=== PATIENT | female | born 1940 | race Hispanic/Latino ===

== ENCOUNTER 2017-09-14 16:33 | Inpatient (IN) | payer OTHER ==
[~2017-09-14] VITALS: Ht 165.1 cm; Wt 74.4 kg
--- NOTE | 2017-09-14 16:50 | ED GENERAL ADULT ---
See Addendum History of Present Illness General Chief Complaint: General Adult Stated Complaint: SHAKING,ARAYA,SHOULDER PAIN Source: patient Exam Limitations: no limitations Vital Signs & Intake/Output Vital Signs & Intake/Output Vital Signs Date Time Temp Pulse Resp B/P B/P Pulse O2 O2 Flow FiO2 Mean Ox Delivery Rate 09/14 1839 101.5 09/14 1800 101.5 103 18 126/61 97 Nasal 2.0L Cannula 09/14 1725 103.3 09/14 1649 103.3 122 24 144/68 85 Room Air Room Air Allergies Coded Allergies: NO KNOWN ALLERGIES (01/16/15) Triage Nurses Notes Reviewed? yes Onset: Abrupt Duration: hour(s): Timing: recent history HPI: 09/14/17 7 PM 77-year-old female presents to the emergency department for rigors, left chest wall pain, and back pain. She is status post upper and lower endoscopy today. She had esophageal stricture dilation. She seemed to be doing okay and went home and drank chicken noodle soup.. She developed rigors and severe chest and back pain. In the emergency department she was in severe distress. She was given IV fluids and IV Tylenol. Her symptoms dramatically improved. She actually requested that she be going home. CT scan showed no evidence of mediastinitis or esophageal perforation. Chest x-ray was negative. The CT of the chest did show groundglass appearance possibly indicative of aspiration pneumonia. The patient was signed out to Dr. Lewis at [address] Pantoja was informed and suggested esophagram be obtained. The radiologist is not available and so the decision must be made to obtain this first thing in the morning or to transfer the patient. The patient received IV Unasyn. Past History Travel History Traveled to [place] past 21 day No Medical History Any Pertinent Medical History? see below for history Cardiovascular: hypertension Gastrointestinal: GERD Psychiatric: anxiety, depression Endocrine: diabetes Surgical History Surgical History: lumpectomy Psychosocial History What is your primary language Guinean Family History Hx Contributory? No Review of Systems Review of Systems Constitutional: Reports: fever. EENTM: Denies: visual changes. Respiratory: Reports: see HPI. Cardiovascular: Reports: see HPI. GI: Reports: see HPI. Genitourinary: Reports: no symptoms. Musculoskeletal: Reports: no symptoms. Skin: Denies: rash. Neurological/Psychological: Reports: no symptoms. Hematologic/Endocrine: Reports: no symptoms. Physical Exam Physical Exam General Appearance: awake, anxious, severe distress Head: atraumatic, normal appearance Eyes: Bilateral: normal appearance, PERRL, EOMI. Ears, Nose, Throat: normal ENT inspection Neck: supple, full range of motion Respiratory: decreased breath sounds Cardiovascular: regular rate/rhythm Peripheral Pulses: 4+ radial (R), 4+ radial (L) Gastrointestinal: soft, non-tender Back: decreased range of motion Extremities: no edema Neurologic/Psych: no motor/sensory deficits, awake, alert, oriented x 3 Skin: intact, normal color, warm/dry Core Measures ACS in differential dx? No CVA/TIA Diagnosis: No Sepsis Present: No Sepsis Focused Exam Completed? No Progress Differential Diagnoses I considered the following diagnoses in my evaluation of the patient: [ Mediastinitis, esophageal perforation, intestinal perforation, free air, pneumothorax, aspiration pneumonia, urosepsis] Plan of Care: Orders Procedure Date/time Status LACTIC ACID 09/14 194 Active XRY-BARIUM SWALLOW/ESOPHAGRAM 09/14 184 Active EKG 09/14 165 Active BLOOD CULTURE 09/14 164 Active TROPONIN LEVEL 09/14 164 Complete LACTIC ACID 09/14 164 Complete COMPREHENSIVE METABOLIC PANEL 09/14 164 Complete CBC WITHOUT DIFFERENTIAL 09/14 164 Complete Laboratory Tests 09/14/17 1705: Anion Gap 14, Estimated GFR > 60, BUN/Creatinine Ratio 15.6, Glucose 96, Lactic Acid 2.4 H, Calcium 9.3, Total Bilirubin 0.9, AST 21, ALT 25, Alkaline Phosphatase 102, Troponin I < 0.01, Total Protein 7.3, Albumin 4.2, Globulin 3.1 , Albumin/Globulin Ratio 1.4, CBC w Diff NO MAN DIFF REQ, RBC 4.56, MCV 86.8, MCH 28.5, MCHC 32.8 L, RDW 16.4 H, MPV 7.1 L, Gran % 83.5 H, Lymphocytes % 13.7 L, Monocytes % 2.4, Eosinophils % 0.2, Basophils % 0.2, Absolute Granulocytes 8.4 H, Absolute Lymphocytes 1.4, Absolute Monocytes 0.2, Absolute Eosinophils 0, Absolute Basophils 0 Microbiology 09/14 1745 BLOOD: Blood Culture - RECD 09/15 1647 BLOOD: Blood Culture - ORD PATIENT: BJ CRUZ PRESENT AGE: 77 PATIENT ACCOUNT NO: [id number] : 42 LOCATION: [facility] ORDERING PHYSICIAN: Chucho Carnes MD SERVICE DATE: 09/14/17 EXAM TYPE: CAT - CT ABD & PELVIS W/O IV CONTRAS EXAMINATION: CT ABDOMEN AND PELVIS WITHOUT CONTRAST CLINICAL INFORMATION: Status post upper endoscopy. COMPARISON: CT of the abdomen and pelvis March 2010. TECHNIQUE: Multidetector volumetric imaging was performed from the superior aspect of the liver through the pubic symphysis. Sagittal and coronal reformatted images were obtained on the technologist's workstation. DLP: 593 mGy-cm FINDINGS: LUNG BASES: See chest report. PERITONEAL CAVITY: No free air or free fluid LIVER, GALLBLADDER, AND BILIARY TREE: The liver parenchyma is normal. There are calcified gallstones unchanged. There is no intrahepatic or extrahepatic biliary dilatation. PANCREAS: Unremarkable. SPLEEN: Unremarkable. ADRENAL GLANDS: Unremarkable. KIDNEYS AND URETERS: The kidneys are normal in size, shape, and attenuation. No hydronephrosis, hydroureter, or calculi seen. No perinephric stranding. BLADDER: Unremarkable. GASTROINTESTINAL TRACT: The small and large bowel are unremarkable. The appendix is unremarkable. The stomach is normal. ABDOMINAL WALL: The muscles are normal. There are subcutaneous partially calcified masses\E\foci in the subcutaneous soft tissues overlying the left gluteal region unchanged possibly reflecting injection granulomas or partially calcified old hematoma. LYMPH NODES: Normal. VASCULAR: There is moderate arterial calcification throughout. PELVIC VISCERA: There is a partially calcified fibroid unchanged possibly subserosal measuring 2 cm. OSSEOUS STRUCTURES: There is mild arthrosis in both hips. There is mild spondylosis of lumbosacral spine unchanged. IMPRESSION: No acute or definite significant abnormality in the abdomen and pelvis. Cholelithiasis unchanged. Moderate calcific atherosclerotic disease. Partially calcified fibroid unchanged. Mild arthrosis in both hips and spondylosis of the lumbosacral spine. Probable injection granulomas left gluteal region. DICTATED BY: Serg Benavidez MD DATE/TIME DICTATED:09/14/171748 [employer]IDGE [employer]ANE OPERATOR:RASHIDA DATE/TIME TRANSCRIBED:09/14/171748 CONFIDENTIAL, DO NOT COPY WITHOUT APPROPRIATE AUTHORIZATION. <Electronically signed in Other Vendor System> SIGNED BY: Serg Benavidez MD 09/14 Initial ED EKG: sinus tachycardia Departure Departure Disposition: STILL A PATIENT Condition: Stable Clinical Impression Primary Impression: Aspiration pneumonia Secondary Impressions: Chest wall pain, Rigors Referrals: Syeda Faith MD (PCP/Family) Departure Forms: Customer Survey General Discharge Information Comments The patient was signed out to Dr. Lewis at 7 PM. PATIENT: BJ CRUZ PRESENT AGE: 77 PATIENT ACCOUNT NO: [id number] : 42 LOCATION: ER ORDERING PHYSICIAN: Chicho Davila DO SERVICE DATE: 09/14/17 EXAM TYPE: CAT - CT CHEST WO IV CONTRAST EXAMINATION: CT CHEST WITHOUT CONTRAST CLINICAL INFORMATION: Chest pain and back pain status post upper endoscopy. COMPARISON: CT scan of the abdomen and pelvis March 2010. TECHNIQUE: Multidetector volumetric CT imaging of the chest was done. Axial MIP volume rendering provided. Sagittal and coronal reformatted images were obtained. DLP: 593 mGy-cm FINDINGS: Exam is slightly limited because of motion artifact from the patient's breathing throughout the exam. LUNGS: There are diffuse patchy airspace disease\E\ground-glass opacities throughout both lungs. There are no discrete nodules. There is no pneumothorax. MEDIASTINUM: No significant lymphadenopathy. Esophagus normal. No mediastinal air. CARDIOVASCULAR: There is moderate arterial calcification throughout. The heart size appears within normal limits. PLEURA: There is no pleural effusion. No pleural mass or thickening. AXILLA: No lymphadenopathy. OSSEOUS STRUCTURES: There is mild spondylosis throughout the dorsal spine. 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 IMPRESSION: Fairly diffuse bilateral patchy airspace disease\E\ground-glass opacities of uncertain etiology and significance. This most likely reflects mild edema. An inflammatory/infectious process is less likely. DICTATED BY: Serg Benavidez MD DATE/TIME DICTATED:09/14/171757 BRIDGE CRANE OPERATOR:RASHIDA DATE/TIME TRANSCRIBED:09/14/171757 CONFIDENTIAL, DO NOT COPY WITHOUT APPROPRIATE AUTHORIZATION. <Electronically signed in Other Vendor System> SIGNED BY: Serg Benaivdez MD 09/14 Critical Care Note Critical Care Note Critical Care Time: 30-74 min
[2017-09-14 17:13] LABS: ABSOLUTE BASOPHIL COUNT 0 /CUMM (0.0-0.2); ABSOLUTE EOSINOPHIL COUNT 0 /CUMM (0.0-0.7); ABSOLUTE GRANULOCYTE CT 8.4 /CUMM (1.4-6.5); ABSOLUTE LYMPH COUNT 1.4 /CUMM (1.2-3.4); ABSOLUTE MONOCYTE COUNT 0.2 /CUMM (0.10-0.60); BASOPHIL % 0.2 % (0.0-2.0); EOSINOPHIL % 0.2 % (0-5); GRANULOCYTE % 83.5 % (42.2-75.2); HEMATOCRIT 39.6 % (37-47); MEAN CORPUSCULAR HGB 28.5 PG (27.0-31.0); MEAN CORPUSCULAR HGB CONC 32.8 G/DL (33.0-37.0); MEAN CORPUSCULAR VOLUME 86.8 FL (81.0-99.0); MEAN PLATELET VOLUME 7.1 FL (7.4-10.4); PLATELET COUNT 330 /CUMM (130-400); RBC DISTRIBUTION WIDTH 16.4 % (11.5-14.5); RED BLOOD CELL CT 4.56 /CUMM (4.20-5.40)
--- NOTE | 2017-09-14 18:34 | CT SCAN REPORT ---
EXAMINATION: CT CHEST WITHOUT CONTRAST CLINICAL INFORMATION: Chest pain and back pain status post upper endoscopy. COMPARISON: CT scan of the abdomen and pelvis March 2010. TECHNIQUE: Multidetector volumetric CT imaging of the chest was done. Axial MIP volume rendering provided. Sagittal and coronal reformatted images were obtained. DLP: 593 mGy-cm FINDINGS: Exam is slightly limited because of motion artifact from the patient's breathing throughout the exam. LUNGS: There are diffuse patchy airspace disease\E\ground-glass opacities throughout both lungs. There are no discrete nodules. There is no pneumothorax. MEDIASTINUM: No significant lymphadenopathy. Esophagus normal. No mediastinal air. CARDIOVASCULAR: There is moderate arterial calcification throughout. The heart size appears within normal limits. PLEURA: There is no pleural effusion. No pleural mass or thickening. AXILLA: No lymphadenopathy. OSSEOUS STRUCTURES: There is mild spondylosis throughout the dorsal spine. 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 IMPRESSION: Fairly diffuse bilateral patchy airspace disease\E\ground-glass opacities of uncertain etiology and significance. This most likely reflects mild edema. An inflammatory/infectious process is less likely.
--- NOTE | 2017-09-14 18:35 | CT SCAN REPORT ---
EXAMINATION: CT ABDOMEN AND PELVIS WITHOUT CONTRAST CLINICAL INFORMATION: Status post upper endoscopy. COMPARISON: CT of the abdomen and pelvis March 2010. TECHNIQUE: Multidetector volumetric imaging was performed from the superior aspect of the liver through the pubic symphysis. Sagittal and coronal reformatted images were obtained on the technologist's workstation. DLP: 593 mGy-cm FINDINGS: LUNG BASES: See chest report. PERITONEAL CAVITY: No free air or free fluid LIVER, GALLBLADDER, AND BILIARY TREE: The liver parenchyma is normal. There are calcified gallstones unchanged. There is no intrahepatic or extrahepatic biliary dilatation. PANCREAS: Unremarkable. SPLEEN: Unremarkable. ADRENAL GLANDS: Unremarkable. KIDNEYS AND URETERS: The kidneys are normal in size, shape, and attenuation. No hydronephrosis, hydroureter, or calculi seen. No perinephric stranding. BLADDER: Unremarkable. GASTROINTESTINAL TRACT: The small and large bowel are unremarkable. The appendix is unremarkable. The stomach is normal. ABDOMINAL WALL: The muscles are normal. There are subcutaneous partially calcified masses\E\foci in the subcutaneous soft tissues overlying the left gluteal region unchanged possibly reflecting injection granulomas or partially calcified old hematoma. LYMPH NODES: Normal. VASCULAR: There is moderate arterial calcification throughout. PELVIC VISCERA: There is a partially calcified fibroid unchanged possibly subserosal measuring 2 cm. OSSEOUS STRUCTURES: There is mild arthrosis in both hips. There is mild spondylosis of lumbosacral spine unchanged. IMPRESSION: No acute or definite significant abnormality in the abdomen and pelvis. Cholelithiasis unchanged. Moderate calcific atherosclerotic disease. Partially calcified fibroid unchanged. Mild arthrosis in both hips and spondylosis of the lumbosacral spine. Probable injection granulomas left gluteal region.
--- NOTE | 2017-09-14 18:35 | RADIOLOGY REPORT ---
EXAMINATION: XR ABDOMEN CLINICAL INDICATION: Septic. Concern for perforation of bowel. COMPARISON: None TECHNIQUE: Upright single AP view of the abdomen. [id number] includes the lower chest and upper abdomen. The lower abdomen not included. FINDINGS: There is no free air. There is some gas in the stomach and as well as large and small bowel loops of the upper abdomen without abnormal dilatation of these bowel loops. The visualized chest is overpenetrated for the abdomen technique. No gross abnormality of the chest. There is multilevel degenerative spondylosis of the spine. IMPRESSION: No free air abdomen.
--- NOTE | 2017-09-14 20:37 | History & Physical ---
Ramiro CERVANTES,Wyatt 09/14/172036: General Information and HPI MD Statement: I have seen and personally examined BJ CRUZ and documented this H&P. The patient is a 77 year old F who presented with a patient stated chief complaint of [Chest pain, fever, chills]. Source of Information: patient, old records Exam Limitations: no limitations History of Present Illness: Patient is 81-year-old female with past medical history of hypertension, diabetes, anxiety, depression, GERD presented with chief complaints of fever, chills, abdominal pain, back pain. She had colonoscopy on 09/07 and upper GI endoscopy today at 12:30 PM. During the procedure she had esophageal stricture dilatation. Postprocedure she was good and sent home. She ate chicken noodle soup, without any difficulty in swallowing. At around 3:00 she started having severe chest pain radiating to both shoulder and back associated with shivering, chills. She drove herself to [facility] ED. At the time of presentation she was in severe distress was given IV fluids and IV Tylenol. According to the upper GI endoscopy note she had -from the GE junction around 35 cm there was a thick ring, and distal to which was a hiatal hernia.Using a CRE balloon, the GE junction was dilated for 1 minute to 20 mm.Postdilatation, there was focal disruption of the ring with a small amount of fresh blood. Allergies -no known drug allergies Surgery -she had lumpectomy around 12 years ago Personal history -she lives with her who works at the [employer], she denies smoking but drinks alcohol 1 pack morning and evening. Allergies/Medications Allergies: Coded Allergies: NO KNOWN ALLERGIES (01/16/15) Past History Travel History Traveled to [place] past 21 day No Medical History Cardiovascular: hypertension Gastrointestinal: GERD Psychiatric: anxiety, depression Endocrine: diabetes Surgical History Surgical History: lumpectomy Review of Systems Review of Systems Constitutional: Reports: no symptoms, chills. GI: Reports: abdominal pain. Exam & Diagnostic Data Last 24 Hrs of Vital Signs/I&O Vital Signs Date Time Temp Pulse Resp B/P B/P Pulse O2 O2 Flow FiO2 Mean Ox Delivery Rate 09/14 2010 98.8 106 112/60 97 Nasal 2.0L Cannula 09/14 1838 101.5 09/14 1800 101.5 103 18 126/61 97 Nasal 2.0L Cannula 09/14 1725 103.3 09/14 1649 103.3 122 24 144/68 85 Room Air Room Air Physical Exam General Appearance Alert, Oriented X3, Cooperative Skin No Rashes Neck Supple, No JVD Cardiovascular Normal S1, Normal S2 Lungs bilateral basilar crackles Abdomen Soft, No Tenderness Extremities No Clubbing, No Cyanosis, No Edema Vascular Normal Pulses, Pulses Symmetrical Last 24 Hrs of Labs/Anton: Laboratory Tests 09/14/17 1941: Lactic Acid 1.2 09/14/17 170: Anion Gap 14, Estimated GFR > 60, BUN/Creatinine Ratio 15.6, Glucose 96, Lactic Acid 2.4 H, Calcium 9.3, Total Bilirubin 0.9, AST 21, ALT 25, Alkaline Phosphatase 102, Troponin I < 0.01, Total Protein 7.3, Albumin 4.2, Globulin 3.1 , Albumin/Globulin Ratio 1.4, CBC w Diff NO MAN DIFF REQ, RBC 4.56, MCV 86.8, MCH 28.5, MCHC 32.8 L, RDW 16.4 H, MPV 7.1 L, Gran % 83.5 H, Lymphocytes % 13.7 L, Monocytes % 2.4, Eosinophils % 0.2, Basophils % 0.2, Absolute Granulocytes 8.4 H, Absolute Lymphocytes 1.4, Absolute Monocytes 0.2, Absolute Eosinophils 0, Absolute Basophils 0 Microbiology 09/14 1745 BLOOD: Blood Culture - RECD 09/14 164 BLOOD: Blood Culture - ORD Diagnostic Data Other Results Abdomen x-ray -no free air in the abdomen CT abdomen and pelvis -no acute defined significant abnormality in the abdomen pelvis, cholelithiasis, moderate calcific atherosclerosis, partially calcified fibroid, mild arthrosis in the both hips and spondylosis of lumbosacral spine, probable injection granuloma in the left gluteal region. CT scan of the chest-fairly diffuse patchy airspace disease\E\ground-glass opacities throughout both lungs. There are no discrete nodules. Assessment/Plan Assessment: depression, GERD presented with chief complaints of abdominal pain, back pain. She had colonoscopy on 09/07 and upper GI endoscopy today at 12:30 PM. During the procedure she had esophageal stricture dilatation. Postprocedure she was good and sent home. She ate chicken noodle soup, without any difficulty in swallowing. At around 3:00 she started having severe chest pain radiating to both shoulder and back associated with shivering, chills. She drove herself to [facility] ED. At the time of presentation she was in severe distress was given IV fluids and IV Tylenol. According to the upper GI endoscopy note she had -from the GE junction around 35 cm there was a thick ring, and distal to which was a hiatal hernia.Using a CRE balloon, the GE junction was dilated for 1 minute to 20 mm.Postdilatation, there was focal disruption of the ring with a small amount of fresh blood. Vital signs at the time of admission -temperature 103.3, pulse 0.82, respiratory 24, blood pressure 144/68, SPO2 85% on room air and currently 97% on 2 L of nasal cannula. Blood workup showed -WBC 10.0, hemoglobin 13.0, hematocrit 39.6, MCHC 32.8, platelet count 330, granulocyte 83.5, lymphocyte 13.7, sodium 142, potassium 4.1 , chloride 101, carbon dioxide 27, anion gap 14, BUN 14, creatinine 0.9, glucose 96. lactic acid 2.4, calcium 9.3, total bilirubin 0.9, AST 21, ALT 25, high lactic acid Abdomen x-ray -no free air in the abdomen CT abdomen and pelvis -no acute defined significant abnormality in the abdomen pelvis, cholelithiasis, moderate calcific atherosclerosis, partially calcified fibroid, mild arthrosis in the both hips and spondylosis of lumbosacral spine, probable injection granuloma in the left gluteal region. CT scan of the chest-fairly diffuse patchy airspace disease\E\ground-glass opacities throughout both lungs. There are no discrete nodules. Assessment and plan - Bilateral aspiration pneumonia -leading to Sepsis She had upper GI endoscopy which is followed by sudden onset of high-grade fever , chills possibly secondary to microperforation or aspiration. CT scan did not show any evidence of perforation though CT of the chest did show evidence of bilateral diffuse patchy airspace disease. She felt better after giving IV Tylenol, IV fluids, Unasyn. Blood workup did show evidence of lactic acidosis. * We will admit the patient to general medicine floor * We will keep her n.p.o. for possible esophagogram tomorrow * Start her on IV fluids 100 cc/h * Injection Unasyn 3 g IV 8 hourly * Strict intake output charting * Aspiration precaution * Repeat chest x-ray tomorrow * We will follow the blood cultures * injection pantoprazole 40 mg IV OD Type 2 diabetes - * Blood sugar charting 3 times daily/at bedtime * insulin according to sliding scale Hypertension - * We will hold tablet losartan for now, and if she remains stable then start from tomorrow Depression - * she was on Paxil, please confirm the dose. Diet -n.p.o. CODE STATUS -full code DVT prophylaxis-WOO/heparin Please confirm the medication from [facility] at [place] tomorrow morning As Ranked By This Provider Problem List: 1. Aspiration pneumonia 2. Diabetes 3. Hypertension Core Measures/Misc (01/14) Acute Coronary Syndrome ACS Diagnosis: No Congestive Heart Failure Congestive Heart Failure Diagnosis No Cerebrovascular Accident CVA/TIA Diagnosis: No VTE (View Protocol) VTE Risk Factors Age>40 No Mechanical VTE Prophylaxis d/t N/A MechProphylax Ordered No VTE Pharm Prophylaxis d/t NA PharmProphylax ordered Sepsis (View protocol) Sepsis Present: Yes Pro Jordan 09/14/17 2239: Attending MD Review Statement Attending Statement Attending MD Statement: examined this patient, discuss w/resident/PA/WRESTLING COACH, agreed w/resident/PA/WRESTLING COACH, reviewed EMR data (avail), reviewed images, amended to note Attending Assessment/Plan: CC: Chills, body ache PMH: DM, HTN, hypothyroidism, HLD, GERD, depression Patient came to ER for severe shivering and body aches. She underwent upper endoscopy today, tolerated the procedure well and went home. She had some soup and laid down for some time, then she noticed severe shivering and body aches. Main pain was in chest, back, radiating to shoulder, no aggravating or relieving factors. She also noticed cough without expectoration. Patient denies any pleuritic nature of pain. Currently she has mild pain in the center of the chest , nonradiating and mild abdominal pain probably secondary to distention but denies any nausea, vomiting, diarrhea, urinary symptoms, otherwise complete ROS unremarkable. Patient also underwent colonoscopy on September 07. CT abdomen pelvis without IV contrast: Vitals: Temperature 103.3, pulse 122, RR 24, blood pressure 144/68, saturating 85% on room air, then 97% on 2 L nasal cannula On exam: A O 3, cooperative, no acute distress, neck supple, JVD normal, no lymphadenopathy, mucosa moist, no focal neurological deficit, no dependent edema , no obvious skin rashes or inflammation CVS: S1-S2, RRR. RS: Bilateral fine crackles, no tenderness on palpation. Abdomen: Soft, NT, ND, no guarding or rigidity, bowel sounds present. CT chest without contrast: Fairly diffuse bilateral patchy airspace disease\E\ground-glass opacities of uncertain etiology and significance. This most likely reflects mild edema. An inflammatory/infectious process is less likely. CT abdomen and pelvis without IV contrast: No acute or definite significant abnormality in the abdomen and pelvis. Cholelithiasis unchanged. Moderate calcific atherosclerotic disease. Partially calcified fibroid unchanged. Mild arthrosis in both hips and spondylosis of the lumbosacral spine. Probable injection granulomas left gluteal region. Assessment and plan 77-year-old female with above-mentioned comorbidities presented in ER for generalized body ache, shivering, chest pain and back pain radiating to shoulder and cough started after her endoscopy procedure today. Then reviewed her endoscopy report: She had hiatal hernia, GE junction ring was dilated. She was significantly febrile on arrival, tachypneic, tachycardic and desaturated up to 85%, currently requiring 2 L nasal cannula. She has crackles bilaterally on auscultation and CT chest confirms bilateral aspiration pneumonia. There is no free ache in the mediastinum, patient's fever responded appropriately to IV acetaminophen. Currently she is stable for admission on general medicine, continue antibiotics and reevaluate. Given her central chest pain after endoscopy, there is a small possibility of perforation, we will obtain esophagogram and a.m. + Aspiration pneumonia + Sepsis + Hx DM, HTN, hypothyroidism, HLD, GERD, depression - Admit to general medicine - Continue O2 by nasal cannula, try to wean off - Continue IV Unasyn - Incentive spirometry - TRC nebs - Mucinex - Confirm her medications from pharmacy to restart her antihypertensive medications - Continue sliding scale insulin - Esophagogram in a.m. - Inform finish patcher about patient being in hospital - Trend lactate - Obtain ECG - DVT prophylaxis
[2017-09-14 22:03] VITALS: BP 110/60
--- NOTE | 2017-09-14 22:41 | Admission Certification ---
Admission Certification Certification Statement - As attending physician, I certify that at the time of - admission, based on clinical presentation, severity of - symptoms, need for further diagnostic testing and - therapeutic interventions, and risk of adverse outcomes - without in-hospital treatment, in my clinical assessment, - this patient requires an acute hospital stay for a minimum - of two nights or longer. I have also considered psychsocial - factors such as support system, advanced age, financial - issues, cognitive issues, and failed out-patient treatments, - past re-admission history, safety of patient, and lack of - compliance as applicable. Specific rationale supporting this admission is: Aspiration pneumonia
[2017-09-15 06:27] VITALS: BP 168/84
[2017-09-15 08:50] LABS: ABSOLUTE BASOPHIL COUNT 0 /CUMM (0.0-0.2); ABSOLUTE EOSINOPHIL COUNT 0 /CUMM (0.0-0.7); ABSOLUTE GRANULOCYTE CT 13.2 /CUMM (1.4-6.5); ABSOLUTE LYMPH COUNT 1.5 /CUMM (1.2-3.4); ABSOLUTE MONOCYTE COUNT 0.4 /CUMM (0.10-0.60); BASOPHIL % 0.2 % (0.0-2.0); EOSINOPHIL % 0.1 % (0-5); GRANULOCYTE % 87.3 % (42.2-75.2); MEAN CORPUSCULAR HGB 28.8 PG (27.0-31.0); MEAN CORPUSCULAR HGB CONC 33.1 G/DL (33.0-37.0); MEAN PLATELET VOLUME 7.8 FL (7.4-10.4); PLATELET COUNT 247 /CUMM (130-400); RBC DISTRIBUTION WIDTH 16.5 % (11.5-14.5)
--- NOTE | 2017-09-15 09:05 | PN- Housestaff ---
Tomi CERVANTES,Ashley 09/15/17 0904: Subjective Follow-up For: likely aspiration pneumonia Subjective: Patient reports that she is feeling better than she was at admission. She denies any shortness of breath or chest pain. The patient does have issues with swallowing and we have consulted GI who dated that they would follow the patient up outpatient for possible esophagogram. For now we have started her on full liquids which she does not want but is accepting. Review of Systems Constitutional: Reports: no symptoms. Cardiovascular: Reports: no symptoms. Respiratory: Reports: no symptoms. Gastrointestinal: Reports: no symptoms. Genitourinary: Reports: no symptoms. Musculoskeletal: Reports: no symptoms. Skin: Reports: no symptoms. Objective Last 24 Hrs of Vital Signs/I&O Vital Signs Date Time Temp Pulse Resp B/P B/P Pulse O2 O2 Flow FiO2 Mean Ox Delivery Rate 09/15 142 99.5 74 20 124/58 97 09/15 1420 Room Air 09/15 06 97.5 70 18 168/84 95 Room Air 09/14 2203 99.4 96 18 110/60 94 Room Air 09/14 2010 98.8 106 112/60 97 Nasal 2.0L Cannula Intake & Output 09/15 1600 09/15 0800 09/15 0000 Intake Total 172 227 3742 Output Total Balance 124 352 6229 Intake, IV 600 2000 Intake, Oral 480 100 0 Patient 164 lb Weight Weight Reported by Patient Measurement Method Physical Exam General Appearance: Alert, Oriented X3, Cooperative, No Acute Distress Skin: No Rashes, No Breakdown, No Significant Lesion Skin Temp/Moisture Exam: Warm/Dry HEENT: Atraumatic, EOMI, Mucous Membr. moist/pink Cardiovascular: Regular Rate, Normal S1, Normal S2, No Murmurs Lungs: distant crackles heard at bases Abdomen: Normal Bowel Sounds, Soft, No Tenderness Extremities: No Clubbing, No Cyanosis, No Edema Vascular: Normal Pulses, Pulses Symmetrical Current Medications: Current Medications Sig/Rose Marie Start time Last Medication Dose Route Stop Time Status Admin Ampicillin Sodium/ 3,000 MG Q6 09/14 2359 AC 09/15 Sulbactam Sodium IV 1819 Sodium Chloride 100 ML Dextrose/Sodium 1,000 ML Q13H 09/15 0900 DC 09/15 Chloride IV 0937 Enoxaparin Sodium 40 MG DAILY 09/15 09 AC 09/15 SC 0741 Insulin Aspart 0 TIDAC 09/15 1700 AC SC Insulin Aspart 0 TIDAC 09/15 0800 DC SC Insulin Human Regular 0 Q6 09/15 0855 DC 09/15 SC 0937 Omeprazole 40 MG DAILY AC 09/16 0700 AC PO Pantoprazole Sodium 40 MG DAILY 09/15 0900 DC 09/15 IV 0741 Sodium Chloride 1,000 ML Q13H 09/14 2145 DC 09/14 IV 2225 Last 24 Hrs of Lab/Anton Results Last 24 Hrs of Labs/Mics: Laboratory Tests 09/15/17 0700: Anion Gap 10, Estimated GFR > 60, BUN/Creatinine Ratio 12.5, CBC w Diff NO MAN DIFF REQ, RBC 3.70 L, MCV 87.0, MCH 28.8, MCHC 33.1, RDW 16.5 H, MPV 7.8, Gran % 87.3 H, Lymphocytes % 9.7 L, Monocytes % 2.7, Eosinophils % 0.1, Basophils % 0.2, Absolute Granulocytes 13.2 H, Absolute Lymphocytes 1.5, Absolute Monocytes 0.4, Absolute Eosinophils 0, Absolute Basophils 0 09/14/171940: Lactic Acid 1.2 Assessment/Plan Assessment: 77 year old female with a PMH of depression, GERD presented with chief complaints of abdominal pain, back pain. She had colonoscopy on 09/07 and upper GI endoscopy today at 12:30 PM. During the procedure she had esophageal stricture dilatation. Postprocedure she was good and sent home. No difficulty swallowing postprocedure. At around 3:00 she started having severe chest pain radiating to both shoulder and back associated with shivering, chills. She drove herself to [facility] ED. At the time of presentation she was in severe distress was given IV fluids and IV Tylenol. According to the upper GI endoscopy note she had -from the GE junction around 35 cm there was a thick ring, and distal to which was a hiatal hernia.Using a CRE balloon, the GE junction was dilated for 1 minute to 20 mm.Postdilatation, there was focal disruption of the ring with a small amount of fresh blood. Vital signs at the time of admission -temperature 103.3, pulse 0.82, respiratory 24, blood pressure 144/68, SPO2 85% on room air and currently 97% on 2 L of nasal cannula. Blood workup showed -WBC 10.0, hemoglobin 13.0, hematocrit 39.6, MCHC 32.8, platelet count 330, granulocyte 83.5, lymphocyte 13.7, sodium 142, potassium 4.1 , chloride 101, carbon dioxide 27, anion gap 14, BUN 14, creatinine 0.9, glucose 96. lactic acid 2.4, calcium 9.3, total bilirubin 0.9, AST 21, ALT 25, high lactic acid Abdomen x-ray -no free air in the abdomen CT abdomen and pelvis -no acute defined significant abnormality in the abdomen pelvis, cholelithiasis, moderate calcific atherosclerosis, partially calcified fibroid, mild arthrosis in the both hips and spondylosis of lumbosacral spine, probable injection granuloma in the left gluteal region. CT scan of the chest-fairly diffuse patchy airspace disease\E\ground-glass opacities throughout both lungs. There are no discrete nodules. Assessment and plan - Sepsis secondary to Bilateral aspiration pneumonia She had upper GI endoscopy which is followed by sudden onset of high-grade fever , chills possibly secondary to microperforation or aspiration. CT scan did not show any evidence of perforation though CT of the chest did show evidence of bilateral diffuse patchy airspace disease. She felt better after giving IV Tylenol, IV fluids, Unasyn. Blood workup did show evidence of lactic acidosis. * We have consulted with GI was stated that they would follow the patient up outpatient for her esophageal issues. The patient was nothing by mouth today and we will advance her to full liquids and hopefully to regular diet tomorrow if she is tolerating this well. Started her on by mouth 40 mg omeprazole. * As patient is drinking we will stop her fluids * Continue Unasyn 3 g IV 8 hourly, WC did increase from 10-15.1 today, reassess CBC tomorrow and monitor vitals * Strict intake output charting * Aspiration precaution * Repeat chest x-ray done today showed patchy airspace opacities worrisome for multifocal pneumonia, similar to previous scan with no convincing effusion * We will follow the blood cultures Type 2 diabetes - * Blood sugar charting 3 times daily/at bedtime * insulin according to sliding scale Hypertension - * We will hold losartan for now, and if she remains stable then start from tomorrow. blood pressure is stable in 120s over 60s today. CODE STATUS -full code DVT prophylaxis-WOO/heparin Problem List: 1. Aspiration pneumonia 2. Diabetes 3. Hypertension Pain Ratin Pain Location: na Pain Goal: Remain pain free Pain Plan: jayesh Tomorrow's Labs & Rationales: cbc bep Lauren CERVATNES,Amir 09/15/17 1403: Attending MD Review Statement Attending Statement Attending MD Statement: examined this patient, discuss w/resident/PA/CLINICAL ENGINEER, agreed w/resident/PA/CLINICAL ENGINEER, discussed with family, reviewed EMR data (avail), discussed with nursing Attending Assessment/Plan: Ms. Smith was seen and evaluated. Chart reviewed. Reports doing better, feeling hungry and wants to eat. Currently doing OK on abx. CT c/w asp penumonitis. --cont abx --swith to PO before d/c --adv diet as tolerated --rest of the plan as per resident's note
[2017-09-15 11:07] LABS: HEMATOCRIT 32.2 % (37-47); WHITE BLOOD CELL COUNT 15.1 /CUMM (4.8-10.8)
[2017-09-15 14:26] VITALS: BP 124/58
--- NOTE | 2017-09-15 15:55 | RADIOLOGY REPORT ---
EXAMINATION: XR PORTABLE CHEST CLINICAL INFORMATION: Fever, chills COMPARISON: CT chest 09/14/2017 TECHNIQUE: Portable frontal view of the chest was obtained. FINDINGS: Bilateral patchy airspace opacities are better depicted on the CT from one day prior. Biapical pleural parenchymal thickening is relatively symmetric. The cardiac contour is top normal in size. The mediastinal contour is within normal range. No convincing pleural effusion or pneumothorax. Visualized osseous structures appear grossly intact. IMPRESSION: Patchy airspace opacities worrisome for multifocal pneumonia. No convincing effusion.
[2017-09-15 22:33] VITALS: BP 140/60
[2017-09-16 06:20] VITALS: BP 128/60
[2017-09-16 08:37] LABS: ABSOLUTE BASOPHIL COUNT 0 /CUMM (0.0-0.2); ABSOLUTE EOSINOPHIL COUNT 0 /CUMM (0.0-0.7); ABSOLUTE GRANULOCYTE CT 8.3 /CUMM (1.4-6.5); ABSOLUTE LYMPH COUNT 1.2 /CUMM (1.2-3.4); ABSOLUTE MONOCYTE COUNT 0.6 /CUMM (0.10-0.60); BASOPHIL % 0.2 % (0.0-2.0); EOSINOPHIL % 0.4 % (0-5); GRANULOCYTE % 81.6 % (42.2-75.2); HEMATOCRIT 33.5 % (37-47); MEAN CORPUSCULAR HGB 28.8 PG (27.0-31.0); MEAN CORPUSCULAR HGB CONC 33.2 G/DL (33.0-37.0); MEAN CORPUSCULAR VOLUME 86.8 FL (81.0-99.0); MEAN PLATELET VOLUME 7.9 FL (7.4-10.4); PLATELET COUNT 250 /CUMM (130-400); RBC DISTRIBUTION WIDTH 16.3 % (11.5-14.5); RED BLOOD CELL CT 3.86 /CUMM (4.20-5.40); WHITE BLOOD CELL COUNT 10.1 /CUMM (4.8-10.8)
--- NOTE | 2017-09-16 10:16 | PN- Housestaff ---
Ashley Krsihna MD 09/16/17 1016: Subjective Follow-up For: Aspiration pneumonia Subjective: Patient states that her breathing is good today. She is very hungry and would like to be advanced to a regular diet. She has no other complaints except that she is very uncomfortable in the hospital bed and would like to be discharged today. Review of Systems Constitutional: Reports: no symptoms. EENTM: Reports: no symptoms. Cardiovascular: Reports: no symptoms. Respiratory: Reports: no symptoms. Gastrointestinal: Reports: no symptoms. Genitourinary: Reports: no symptoms. Musculoskeletal: Reports: no symptoms. Skin: Reports: no symptoms. Objective Last 24 Hrs of Vital Signs/I&O Vital Signs Date Time Temp Pulse Resp B/P B/P Pulse O2 O2 Flow FiO2 Mean Ox Delivery Rate 09/16 0620 98.8 84 18 128/60 96 Room Air 09/15 2233 98.5 77 20 140/60 94 Room Air Intake & Output 09/16 1600 09/16 0800 09/16 0000 Intake Total 900 560 350 Output Total 350 Balance 900 210 350 Intake, IV 100 200 100 Intake, Oral 800 360 250 Output, Urine 350 Physical Exam General Appearance: Alert, Oriented X3, Cooperative, No Acute Distress Skin: No Rashes, No Breakdown, No Significant Lesion Skin Temp/Moisture Exam: Warm/Dry Sepsis Skin Exam (color): Normal for Ethnicity HEENT: Atraumatic, EOMI, Mucous Membr. moist/pink Neck: Supple, No JVD Cardiovascular: Regular Rate, Normal S1, Normal S2, No Murmurs Lungs: Clear to Auscultation, Normal Air Movement Abdomen: Normal Bowel Sounds, Soft, No Tenderness Neurological: Normal Speech Extremities: No Clubbing, No Edema, Normal Pulses Assessment/Plan Assessment: 77 year old female with a PMH of depression, GERD presented with chief complaints of abdominal pain, back pain. She had colonoscopy on 09/07 and upper GI endoscopy today at 12:30 PM. During the procedure she had esophageal stricture dilatation. Postprocedure she was good and sent home. No difficulty swallowing postprocedure. At around 3:00 she started having severe chest pain radiating to both shoulder and back associated with shivering, chills. She drove herself to [facility] ED. At the time of presentation she was in severe distress was given IV fluids and IV Tylenol. According to the upper GI endoscopy note she had -from the GE junction around 35 cm there was a thick ring, and distal to which was a hiatal hernia.Using a CRE balloon, the GE junction was dilated for 1 minute to 20 mm.Postdilatation, there was focal disruption of the ring with a small amount of fresh blood. Vital signs at the time of admission -temperature 103.3, pulse 0.82, respiratory 24, blood pressure 144/68, SPO2 85% on room air and currently 97% on 2 L of nasal cannula. Blood workup showed -WBC 10.0, hemoglobin 13.0, hematocrit 39.6, MCHC 32.8, platelet count 330, granulocyte 83.5, lymphocyte 13.7, sodium 142, potassium 4.1 , chloride 101, carbon dioxide 27, anion gap 14, BUN 14, creatinine 0.9, glucose 96. lactic acid 2.4, calcium 9.3, total bilirubin 0.9, AST 21, ALT 25, high lactic acid Abdomen x-ray -no free air in the abdomen CT abdomen and pelvis -no acute defined significant abnormality in the abdomen pelvis, cholelithiasis, moderate calcific atherosclerosis, partially calcified fibroid, mild arthrosis in the both hips and spondylosis of lumbosacral spine, probable injection granuloma in the left gluteal region. CT scan of the chest-fairly diffuse patchy airspace disease\E\ground-glass opacities throughout both lungs. There are no discrete nodules. Assessment and plan - Sepsis secondary to Bilateral aspiration pneumonia She had upper GI endoscopy which is followed by sudden onset of high-grade fever , chills possibly secondary to microperforation or aspiration. CT scan did not show any evidence of perforation though CT of the chest did show evidence of bilateral diffuse patchy airspace disease. She felt better after giving IV Tylenol, IV fluids, Unasyn. Blood workup did show evidence of lactic acidosis. * We have consulted with GI was stated that they would follow the patient up outpatient for her esophageal issues. The patient was nothing by mouth today and we will advance her to full liquids and hopefully to regular diet tomorrow if she is tolerating this well. Started her on by mouth 40 mg omeprazole. * As patient is drinking we will stop her fluids. Will advance her diet today from full liquids to regular and if she is tolerating well, she can be discharged * That she Unasyn to Augmentin 875 twice a day for a total of 10 days of treatment, she can be discharged. WBC decreased from 15.1-10.1 today stable * Strict intake output charting * Aspiration precaution * Repeat chest x-ray done today showed patchy airspace opacities worrisome for multifocal pneumonia, similar to previous scan with no convincing effusion * We will follow the blood cultures, are so far negative Type 2 diabetes - * Blood sugar charting 3 times daily/at bedtime * insulin according to sliding scale * She can restart her metformin on discharge Hypertension and hypothyroid - * She can continue her irbesartan on discharge as well as her levothyroxin CODE STATUS -full code DVT prophylaxis-WOO/heparin Problem List: 1. Aspiration pneumonia 2. Esophageal stricture Pain Ratin Pain Location: NA Pain Goal: Remain pain free Pain Plan: NA Tomorrow's Labs & Rationales: BRIA Aguilar MD,Amir 09/16/17 1217: Attending MD Review Statement Attending Statement Attending MD Statement: examined this patient, discuss w/resident/PA/WOODWORKING MACHINE FEEDER, agreed w/resident/PA/WOODWORKING MACHINE FEEDER, reviewed EMR data (avail), discussed with nursing Attending Assessment/Plan: Pt reports doing better. No f/c/n/v. Feels hungry and wants to go home. Repeat CXR c/w Patchy airspace opacities worrisome for multifocal pneumonia. No convincing effusion. --switch to Augmentin x 7 days --pt advised to f/u with PCP or GI if symptoms don't improve --pt in agreement with the plan and being d/c today
--- NOTE | 2017-09-16 11:59 | Patient Discharge Instructions ---
Discharge Instructions General Discharge Information You were seen/treated for: aspiration pneumonia Special Instructions: 1. follow up with PCP in one week 2. follow up with carton marker machine in one week 3. take all medications as directed Diet Continue normal diet: Yes (as tolerated) Activity Full Activity/No Limits: Yes Acute Coronary Syndrome Inclusion Criteria At DC or during hospital stay patient has or had the following: ACS DIAGNOSIS No Discharge Core Measures Meds if any: Prescribed or Continued at Discharge Meds if any: NOT Prescribed or Continued at Discharge Congestive Heart Failure Inclusion Criteria At DC or during hospital stay patient has or had the following: CHF DIAGNOSIS No Discharge Core Measures Meds if any: Prescribed or Continued at Discharge Meds if any: NOT Prescribed or Continued at Discharge Cerebrovascular accident Inclusion Criteria At DC or during hospital stay patient has or had the following: CVA/TIA Diagnosis No Discharge Core Measures Meds if any: Prescribed or Continued at Discharge Meds if any: NOT Prescribed or Continued at Discharge Venous thromboembolism Inclusion Criteria VTE Diagnosis No VTE Type NONE VTE Confirmed by (Test) NONE Discharge Core Measures - Per Current guidelines, there needs to be overlap - treatment for the first 5 days of Warfarin therapy. - If discharged on Warfarin prior to 5 days of - overlap therapy, the patient will need to be - assessed for post discharge needs including - *Post discharge parental anticoagulation - *Warfarin and/or parental anticoagulation education - *Follow up date to check INR post discharge At least 5 days overlap therapy as Inpatient No Meds if any: Prescribed or Continued at Discharge Note: Overlap Therapy is Warfarin and Anticoagulant Meds if any: NOT Prescribed or Continued at Discharge
[2017-09-16] MEDS ORDERED: AUGMENTIN 875-1 EACH PO (12:05)
[2017-09-16] MEDS ORDERED: OMEPRAZOLE20 M2 PO (12:05)
[2017-09-16] MEDS ORDERED: LEVOTHYROXINE50 MCG PO (14:36)
[2017-09-16] MEDS ORDERED: CRESTOR40 M2 PO (14:36)
[2017-09-16] MEDS ORDERED: METFORMIN HCL500 M3 PO (14:37)
[2017-09-16] MEDS ORDERED: IRBESARTAN150 M1 PO (14:37)
[2017-09-16] MEDS ORDERED: GABAPENTIN100 M2 PO (14:38)
[2017-09-16 15:13] VITALS: BP 110/60
--- NOTE | 2017-09-16 19:56 | Event Note ---
Event Note Event Note: I was paged by the nurse that the patient was discharged today and went to his pharmacy to get this medications, but the pharmacy was closed. Patient decided to come back to [facility] to get the medication filled at [facility]. Since our pharmacy was closed today was suggested to send the medication to [facility] in [place] or any other pharmacy which is open today with the patient refused to sheepskin pickler medication at [facility]. Patient left the hospital telling the nurse that she will sheepskin pickler medication at any other pharmacy.
== END 2017-09-16 15:33 | DRG 871 ==
LOC: ERH 16:33 → ERHI 20:12 → 2NA 20:12 → ENRESERV 21:19 → ENTRNSPT 21:39 → EDTRNSPT 21:44 → EDTRNSPTSTS 21:44 → 2NA 21:55 → CMPTRNSPT 22:11 → ENPENDDIS 09-16 12:55 → 2NA 09-16 15:33
PROVIDERS: Internal Medicine; Internal Medicine Adolescent Medicine; Student in an Organized Health Care Education/Training Program
DX: A41.9 Sepsis, unspecified organism (principal); J69.0 Pneumonitis due to inhalation of food and vomit; E11.9 Type 2 diabetes mellitus without complications; F32.9 Major depressive disorder, single episode, unspecified; F41.9 Anxiety disorder, unspecified; I10 Essential (primary) hypertension; K21.9 Gastro-esophageal reflux disease without esophagitis; K22.2 Esophageal obstruction; E03.9 Hypothyroidism, unspecified
CPT/HCPCS: 2NASP; 36592; 71045; 74018; 74176; 82436; 87040; 93005; 93010; 96374; 96375; J0131; J1650; J1815; J7042